=== PATIENT | female | born 1950 | race Caucasian/White ===

== ENCOUNTER → 2016-08-22 | Outpatient (CLI) | payer MEDICARE ==
--- NOTE | 2016-08-23 11:10 | MM ---
Reason for exam: screening (asymptomatic). Last mammogram was performed 1 year and 3 months ago. History: Family history of breast cancer in mother. Physical Findings: A clinical breast exam by your physician is recommended on an annual basis and results should be correlated with mammographic findings. MG 3D Screening Mammo W/Cad Bilateral CC and MLO view(s) were taken. Prior study comparison: May 19, 2015, mammogram, performed at [facility]. The breast tissue is heterogeneously dense. This may lower the sensitivity of mammography. Finding: There are typically benign round calcifications in the right breast. There is no discrete abnormality. ASSESSMENT: Benign, BI-RAD 2 RECOMMENDATION: Routine screening mammogram of both breasts in 1 year.
== END | disposition home or self-care (01) ==
LOC: RADMAMWWP 10:39
PROVIDERS: ATTEND Family Medicine
DX: Z12.31 Encounter for screening mammogram for malignant neoplasm of breast (principal)
CPT/HCPCS: 77063; G0202

== ENCOUNTER 2017-07-02 10:08 | Emergency (ER) | payer MEDICARE ==
--- NOTE | 2017-07-02 11:26 | ED ---
General Adult HPI - General Chief complaint: Fall Stated complaint: Fall, head injury Time Seen by Provider: 07/02/17 10:40 Source: patient, RN notes reviewed Mode of arrival: wheelchair Limitations: no limitations - History of Present Illness Initial comments: This is a 67-year-old female who presents emergency department after she has fallen on some slippery garage floor according to her and her she landed directly on her back and hitting her head at the same time. Patient states she saw stars but did not pass out. Patient states she does have a headache in the right side of her head. Patient states her as a lump in the occipital region of her brain. Patient states that she felt tingling throughout her whole body right after it happened but that has since gone away. Patient denies any neck pain patient denies any back pain patient has noted that she does have a bruise on her elbow but it does not hurt she has full range of motion. Patient denies chest pain abdominal pain. Patient denies any hip pain or lower extremity pain. Patient denies any visual disturbance. Patient states after she landed she felt as though she had some muffling of her hearing. 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 - Related Data Home Medications Medication Instructions Recorded Confirmed Aspirin 81 mg PO DAILY 05/06/14 07/02/17 Biotin 5 mg PO DAILY 07/02/17 07/02/17 Garlic 1 tab PO DAILY 07/02/17 07/02/17 Hydroxychloroquine Sulfate 200 mg PO BID 07/02/17 07/02/17 [Plaquenil] Levothyroxine Sodium [Synthroid] 50 mcg PO DAILY 07/02/17 07/02/17 Allergies Allergy/AdvReac Type Severity Reaction Status Date / Time VITAMIN IN TABLET FORM AdvReac Unknown Uncoded 07/02/17 11:16 Review of Systems ROS Statement: Those systems with pertinent positive or pertinent negative responses have been documented in the HPI. ROS Other: All systems not noted in ROS Statement are negative. Past Medical History Past Medical History: Hyperlipidemia, Rheumatoid Arthritis (RA), Thyroid Disorder Additional Past Medical History / Comment(s): HX OF POLYPS. Right eye anyersum, hypothyroidism History of Any Multi-Drug Resistant Organisms: None Reported Past Surgical History: Hysterectomy Past Anesthesia/Blood Transfusion Reactions: No Reported Reaction Past Psychological History: No Psychological Hx Reported Smoking Status: Never smoker Past Alcohol Use History: Rare Past Drug Use History: None Reported General Exam - General Exam Comments Initial Comments: GENERAL: Patient is well-developed and well-nourished. Patient is nontoxic and well- hydrated and is in mild distress. ENT: Neck is soft and supple. No significant lymphadenopathy is noted. Oropharynx is clear. Moist mucous membranes. She has full range of motion without any pain. However on palpation patient does have some spinous process tenderness at about C6. Patient has some palpable tenderness on the occipital region of her scalp EYES: The sclera were anicteric and conjunctiva were pink and moist. Extraocular movements were intact and pupils were equal round and reactive to light. Eyelids were unremarkable. PULMONARY: Unlabored respirations. Good breath sounds bilaterally. No audible rales rhonchi or wheezing was noted. CARDIOVASCULAR: There is a regular rate and rhythm without any murmurs gallops or rubs. ABDOMEN: Soft and nontender with normal bowel sounds. No palpable organomegaly was noted. There is no palpable pulsatile mass. SKIN: Skin is clear with no lesions or rashes and otherwise unremarkable. NEUROLOGIC: Patient is alert and oriented x3. Cranial nerves II through XII are grossly intact. Motor and sensory are also intact. Normal speech, volume and content. Symmetrical smile. MUSCULOSKELETAL: Normal extremities with adequate strength and full range of motion. Right elbow has a contusion on the posterior aspect of the elbow elbow has full range of motion however. LYMPHATICS: No significant lymphadenopathy is noted PSYCHIATRIC: Normal psychiatric evaluation. Limitations: no limitations Course Vital Signs 07/02/17 10:42 Temperature 97.4 F L Pulse Rate 71 Respiratory 18 Rate Blood Pressure 129/68 O2 Sat by Pulse 96 Oximetry Medical Decision Making - Medical Decision Making Patient's CT of the head and C-spine show no acute abnormality. Patient did not want any pain medicines while in the emergency department. Disposition Clinical Impression: Fall, Head injury Instructions: Head Injury (ED) Additional Instructions: Patient should return to the emergency department there is increased headache, neurologic deficit, vomiting or any new symptoms. Referrals: Shaan Jack DO [Primary Care Provider] - 1-2 days Time of Disposition: 12:45
--- NOTE | 2017-07-02 12:14 | CT ---
EXAMINATION TYPE: CT brain cameron shah DATE OF EXAM: 07/02/2017 COMPARISON: NONE HISTORY: Patient fell today with blow to back of head. Patient complains of neck pain, headache, and dizziness. CT DLP: 1490 mGycm. Automated Exposure Control for Dose Reduction was Utilized. TECHNIQUE: CT scan of the head and cervical spine are performed without contrast. FINDINGS: There is no acute intracranial hemorrhage, mass effect, or midline shift identified. The ventricles and sulci are symmetrically prominent compatible with age-related volume loss The globes are intact and the visualized sinuses are clear. The known 2 mm area prominence extending from the ca vernous segment of the right internal carotid artery is better seen on the prior MR angiogram head da norma 03/24/2015. There is slight asymmetric prominence of the right internal carotid artery comparison to the left. Cervical spine is visualized in its entirety from C1 through upper thoracic levels and demonstrates s atisfactory alignment without evidence of acute fracture or dislocation. Prevertebral soft tissue ap pears within normal limits. The C1-C2 articulation is unremarkable. Sclerotic focus is seen within the left facet of C2, possible bone island measuring 5 mm. No other sclerotic foci are seen. Mild to moderate multilevel degenerative changes are noted of the cervical spine resulting in moderate neural foraminal narrowing bilaterally at C4-C5, severe on the right at C5-C6, and mild at C6-C7 bilaterall y. Small posterior disc osteophyte complexes at C4-C5 and C5-C6 creates mild spinal canal stenosis. T here is a reversal usual cervical lordosis from C2 through C7. Lung apices demonstrate pleural parenc hymal scarring. IMPRESSION: 1. There is no acute fracture or dislocation evident in the cervical spine. 2. No acute intracranial hemorrhage, mass effect, or midline shift is seen. 3. Mild to moderate multilevel degenerative changes of the thoracic spine with reversal usual cervica l lordosis from C2 through C7, multilevel neural foraminal stenosis as described above, and mild spin al canal stenosis at C4-5 and C5-6. 4. Nonspecific sclerotic focus of the left facet of C2 measuring 5 mm, possibly bone island. 5. Age-related cerebral volume loss. 6. Slight asymmetry in the right internal carotid artery as compared to the left with the 2 mm aneury sm better visualized on the MR of 2014. Follow-up with MR for stability could be performed. No curren t evidence of rupture with intracranial hemorrhage.
[2017-07-02 12:55] VITALS: BP 125/62; PULSE 78; RESP 16; TEMP 97.8
== END 2017-07-02 12:50 | disposition home or self-care (01) ==
LOC: EC 10:08
DX: S09.90XA Unspecified injury of head, initial encounter (principal); E03.9 Hypothyroidism, unspecified; Z79.82 Long term (current) use of aspirin; Z79.899 Other long term (current) drug therapy; Z88.8 Allergy status to other drugs, medicaments and biological substances; W01.198A Fall on same level from slipping, tripping and stumbling with subsequent striking against other object, initial encounter; Y92.008 Other place in unspecified non-institutional (private) residence as the place of occurrence of the external cause
CPT/HCPCS: 70450; 72125; 99283

== ENCOUNTER → 2017-08-23 | Outpatient (CLI) | payer MEDICARE ==
--- NOTE | 2017-08-25 08:20 | MM ---
Reason for exam: screening (asymptomatic). Last mammogram was performed 1 year ago. History: Patient is postmenopausal. Family history of breast cancer in mother. Physical Findings: A clinical breast exam by your physician is recommended on an annual basis and results should be correlated with mammographic findings. MG 3D Screening Mammo W/Cad Bilateral CC and MLO view(s) were taken. Prior study comparison: August 22, 2016, bilateral MG 3d screening mammo w/cad. May 19, 2015, mammogram, performed at [facility]. The breast tissue is extremely dense which could obscure a lesion on mammography. No suspicious abnormality. ASSESSMENT: Negative, BI-RAD 1 RECOMMENDATION: Routine screening mammogram of both breasts in 1 year.
== END | disposition home or self-care (01) ==
LOC: RADMAMWWP 09:54
PROVIDERS: ATTEND Family Medicine
DX: Z12.31 Encounter for screening mammogram for malignant neoplasm of breast (principal)
CPT/HCPCS: 77063; 77067

== ENCOUNTER → 2017-11-22 | Outpatient (CLI) | payer MEDICARE | END | disposition home or self-care (01) | LOC: LABWHC1 15:22 | PROVIDERS: ATTEND Otolaryngology | DX: M48.02 Spinal stenosis, cervical region (principal); M50.221 Other cervical disc displacement at C4-C5 level; M19.90 Unspecified osteoarthritis, unspecified site | CPT/HCPCS: 36415; 82565 ==

== ENCOUNTER → 2017-11-23 | Outpatient (CLI) | payer MEDICARE ==
--- NOTE | 2017-11-23 17:20 | MR ---
EXAMINATION TYPE: MR cervical spine wo/w con DATE OF EXAM: 11/23/2017 COMPARISON: None HISTORY: Degenerative osteoarthritis TECHNIQUE: Multiplanar, multisequence images of the cervical spine were acquired utilizing 6 mL intravenous Gada vist gadolinium contrast. Diffusion weighted imaging was performed. C2-C3: No evidence for degenerative disc disease. No disc bulge/herniation or protrusion. No Canal stenosis. Foramina are patent bilaterally. C3-C4: No evidence for degenerative disc disease. No disc bulge/herniation or protrusion. No Canal stenosis. Foramina are patent bilaterally. C4-C5: Broad-based disc bulge has mild anterior thecal sac impression. No AP spinal canal stenosis is evident. No cord contact is evident. Uncovertebral joint atrophy is mild foraminal narrowing. C5-C6: There is loss of disc height to this level. Mild disc bulge has anterior thecal sac flattening . No AP spinal canal stenosis present. Uncovertebral joint hypertrophy is mild foraminal narrowing. C6-C7: Minimal disc bulging is anterior thecal sac contact. No AP spinal canal stenosis present. Unco vertebral joint hypertrophy is mild foraminal narrowing. C7-T1: No evidence for degenerative disc disease. No disc bulge/herniation or protrusion. No Canal stenosis. Foramina are patent bilaterally. Cervical segments are intact. There is normal alignment. Cervical spinal cord is of normal signal. Craniovertebral junction relationships are within normal limits. No abnormal enhancement is evident . IMPRESSION: 1. Mild disc bulging C4-5, C5-6, C6-7. Mild disc narrowing is present C5-6. 2. Uncovertebral joint hypertrophy contributing to foraminal narrowing mid cervical spine discussed a silvio
== END | disposition home or self-care (01) ==
LOC: RADMRIMAIN 11:50
PROVIDERS: ATTEND Otolaryngology
DX: M48.02 Spinal stenosis, cervical region (principal); M99.71 Connective tissue and disc stenosis of intervertebral foramina of cervical region; M50.221 Other cervical disc displacement at C4-C5 level; M46.92 Unspecified inflammatory spondylopathy, cervical region; M19.90 Unspecified osteoarthritis, unspecified site
CPT/HCPCS: 72156; A9581

== ENCOUNTER 2017-11-24 18:17 | Emergency (ER) | payer MEDICARE ==
[2017-11-24 19:17] VITALS: TEMP 98.3
[2017-11-24] MEDS ORDERED: MECLIZINE 12.5 MG TAB PO STA (21:12)
--- NOTE | 2017-11-24 21:19 | ED ---
General Adult HPI - General Chief complaint: Dizziness Stated complaint: Dizziness Time Seen by Provider: 11/24/17 19:28 Source: patient, family, RN notes reviewed, old records reviewed Mode of arrival: wheelchair Limitations: no limitations - History of Present Illness Initial comments: Chief complaint and history of present illness; this is a 67-year-old female here with her daughter and . The patient reports she was driving with her has a passenger in she complained him that she felt very dizzy. 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 She denies difficulty causes dizziness walking into her home after he drove her home. When she went to sit down on the chair in the kitchen she almost fell off the chair. These 2 episodes lasted 2 or 3 minutes each. Since then it has subsided. No significant history of any head injuries lately but she did in mid -June fall and hit her head CAT scan at that time was negative. Recently the patient was treated with a steroid because of fluid behind both ears by her ENT specialist. Recently i.e. yesterday she had an MRI of her cervical spine because of cervical discomfort. That was reviewed and no significant pathology appreciated other than mild disc bulging at C4-C5 and C5-C6 C6-C7 and disc narrowing at C5-C6. At this time the patient is not dizzy with rapid head movement. - Related Data Home Medications Medication Instructions Recorded Confirmed Aspirin 81 mg PO DAILY 05/06/14 11/24/17 Biotin 5 mg PO DAILY 07/02/17 11/24/17 Garlic 1 tab PO DAILY 07/02/17 11/24/17 Hydroxychloroquine Sulfate 200 mg PO DAILY 07/02/17 11/24/17 [Plaquenil] Levothyroxine Sodium [Synthroid] 50 mcg PO DAILY 07/02/17 11/24/17 Calcium Carbonate [Calcium] 600 mg PO DAILY 11/24/17 11/24/17 Cholecalciferol [Vitamin D3] 1,000 unit PO DAILY 11/24/17 11/24/17 Cyanocobalamin [Vitamin B-12 1,000 mcg SQ Q56D 11/24/17 11/24/17 Injection] Liothyronine Sodium [Cytomel] 5 mcg PO DAILY 11/24/17 11/24/17 Valerian Root 100 mg PO DAILY 11/24/17 11/24/17 traZODone HCL 50 mg PO HS 11/24/17 11/24/17 Previous Rx's Medication Instructions Recorded Meclizine [Antivert] 25 mg PO TID #30 tab 11/24/17 Allergies Allergy/AdvReac Type Severity Reaction Status Date / Time VITAMIN IN TABLET FORM Allergy Unknown Rash/Hives Uncoded 11/24/17 19:33 Review of Systems ROS Statement: Those systems with pertinent positive or pertinent negative responses have been documented in the HPI. Review of systems currently no headache or visual acuity changes no dizziness with head movement is chronically mild neck discomfort. No chest pain palpitations shortness of breath GI/ problems no neuro deficits complained of at this time. All systems were reviewed. Past medical processing significant for hyperlipidemia, rheumatoid arthritis for which she takes Plaquenil. She has hypothyroidism, history of polyps. 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 No complaint of headache or visual acuity changes. The patient's family history significant for breast bone and testicular cancer. The patient' s ALLERGIES at a vitamin content nonsmoker nondrinker. ROS Other: All systems not noted in ROS Statement are negative. Past Medical History Past Medical History: Hyperlipidemia, Rheumatoid Arthritis (RA), Thyroid Disorder Additional Past Medical History / Comment(s): HX OF POLYPS. Right eye anyersum, hypothyroidism History of Any Multi-Drug Resistant Organisms: None Reported Past Surgical History: Hysterectomy Past Anesthesia/Blood Transfusion Reactions: No Reported Reaction Past Psychological History: No Psychological Hx Reported Smoking Status: Never smoker Past Alcohol Use History: Rare Past Drug Use History: None Reported General Exam - General Exam Comments Initial Comments: General: The patient is awake and alert, in no distress, and does not appear acutely ill. Here because of dizziness and vertigo that lasted several minutes on several occasions earlier this afternoon. Current vital signs shows temperature 98.3 pulse 61 respiratory rate 18 pulse ox 90% room air blood pressure 131/77 Eye: Pupils are equal, round and reactive to light, extra-ocular movements are intact ; there is normal conjunctiva bilaterally. No signs of icterus. Ears, nose, mouth and throat: There are moist mucous membranes and no oral lesions. Neck: The neck is supple, there is no tenderness, no carotid bruit. Cardiovascular: There is a regular rate and rhythm. No murmur, rub or gallop is appreciated. Respiratory: Lungs are clear to auscultation, respirations are non-labored, breath sounds are equal. No wheezes, stridor, rales, or rhonchi. Gastrointestinal: Soft, non-distended, non-tender abdomen without masses or organomegaly noted. There is no rebound or guarding present. No CVA tenderness. Bowel sounds are unremarkable. Back: No back pain Musculoskeletal: Normal ROM, no tenderness, There is no pedal edema. There is no calf tenderness or swelling. Sensation intact. Pulses equal bilaterally 2+. Neurological: CN II-XII intact, There are no obvious motor or sensory deficits. Coordination appears grossly intact. Speech is normal. No focal or lateralizing findings Skin: Skin is warm and dry and no rashes or lesions are noted. Psychiatric: Cooperative, appropriate mood & affect, normal judgment. Limitations: no limitations Course Vital Signs 11/24/17 11/24/17 11/24/17 19:14 19:51 21:37 Temperature 98.3 F Pulse Rate 61 55 L 61 Respiratory 18 17 18 Rate Blood Pressure 131/77 154/72 129/71 O2 Sat by Pulse 98 98 99 Oximetry 11/24/17 22:36 Temperature Pulse Rate Respiratory 18 Rate Blood Pressure O2 Sat by Pulse Oximetry EKG Findings - EKG Comments: EKG Findings:: EKG was done and reviewed at 1949 showing sinus bradycardia with incomplete right bundle branch block no acute ST elevation no ectopy no ischemic changes. Rate 57 NM interval 144 QRS [address] QT [address] Callejas Medical Decision Making - Medical Decision Making Medical decision making; this is a 67-year-old female here with and daughter. The patient had several episodes lasting several minutes of vertigo. No nausea no vomiting. Labs show white count of 4.3 hemoglobin 12 hematocrit 38 with a potassium 3.8. BUN 12 creatinine 0.7 GFR greater than 90. Glucose 90. Patient did have CAT scan of the brain because she had a significant fall 5 months ago. Yesterday she had an MRI of her cervical spine. Because of chronic pain. A CT of the brain was done and reviewed by radiologist his findings are there is mild cerebral cortical atrophy. There is no mass effect or midline shift. There is no sign of intracranial hemorrhage. The calvarium is intact. Impression mild atrophy. No acute intracranial abnormality. No change. As read by Dr. Mariee Patient's feeling better. He has not had any symptoms while in emergency room. We did discuss middle ear and in her ear pressures. She he has been fluid but no evidence of infection. CAT scan was normal labs normal. Neurologically intact. She was given meclizine while in emergency room. Advised to continue with meclizine 25 mg 3 times a day for the next 7-10 days as needed change positions slowly. Not to drive until she feels as all symptoms have subsided. Follow-up with your ENT as well as her family doctor. Return emergency room as needed. - Lab Data Result diagrams: 11/24/17 21:23 11/24/17 21:23 Lab Results 11/24/17 11/24/17 Range/Units 21:23 21:23 WBC 4.3 (3.8-10.6) k/uL RBC 4.16 (3.80-5.40) m/uL Hgb 12.1 (11.4-16.0) gm/dL Hct 38.1 (34.0-46.0) % MCV 91.5 (80.0-100.0) fL MCH 29.0 (25.0-35.0) pg MCHC 31.7 (31.0-37.0) g/dL RDW 13.0 (11.5-15.5) % Plt Count 224 (150-450) k/uL Neutrophils % 50 % Lymphocytes % 37 % Monocytes % 7 % Eosinophils % 3 % Basophils % 0 % Neutrophils # 2.1 (1.3-7.7) k/uL Lymphocytes # 1.6 (1.0-4.8) k/uL Monocytes # 0.3 (0-1.0) k/uL Eosinophils # 0.1 (0-0.7) k/uL Basophils # 0.0 (0-0.2) k/uL Sodium 142 (137-145) mmol/L Potassium 3.8 (3.5-5.1) mmol/L Chloride 108 H (98-107) mmol/L Carbon Dioxide 28 (22-30) mmol/L Anion Gap 6 mmol/L BUN 12 (7-17) mg/dL Creatinine 0.70 (0.52-1.04) mg/dL Est GFR (CKD-EPI)AfAm >90 (>60 ml/min/1.73 sqM) Est GFR (CKD-EPI)NonAf >90 (>60 ml/min/1.73 sqM) Glucose 90 (74-99) mg/dL Calcium 9.2 (8.4-10.2) mg/dL Total Bilirubin 0.3 (0.2-1.3) mg/dL AST 25 (14-36) U/L ALT 36 (9-52) U/L Alkaline Phosphatase 66 (38-126) U/L Total Protein 6.3 (6.3-8.2) g/dL Albumin 4.0 (3.5-5.0) g/dL Disposition Clinical Impression: Labyrinthitis of right ear Disposition: HOME SELF-CARE Condition: Fair Instructions: Dizziness (ED), Labyrinthitis (ED) Additional Instructions: Change positions slowly. Take meclizine 25 mg 3 times daily. Use nasal spray on the right side especially in order to help the middle ear drained. Follow- up with your family physician and her ENT. Return emergency room as needed. Prescriptions: Meclizine [Antivert] 25 mg PO TID #30 tab Is patient prescribed a controlled substance at d/c from ED?: No Referrals: Shaan Jack DO [Primary Care Provider] - 1-2 days Time of Disposition: 23:23
[2017-11-24 21:32] LABS: Basophils % (A) 0 %; Eosinophils # (A) 0.1 k/uL (0-0.7); Eosinophils % (A) 3 %; HCT 38.1 % (34.0-46.0); HGB 12.1 gm/dL (11.4-16.0); Lymphocytes # (A) 1.6 k/uL (1.0-4.8); Lymphocytes % (A) 37 %; MCHC 31.7 g/dL (31.0-37.0); MCV 91.5 fL (80.0-100.0); Mean Platelet Volume 6.3; Monocytes # (A) 0.3 k/uL (0-1.0); Monocytes % (A) 7 %; Neutrophils # (A) 2.1 k/uL (1.3-7.7); Neutrophils % (A) 50 %; Platelet Count 224 k/uL (150-450); RBC 4.16 m/uL (3.80-5.40); WBC 4.3 k/uL (3.8-10.6)
[2017-11-24 21:46] LABS: ALT 36 U/L (9-52); AST 25 U/L (14-36); Alkaline Phosphatase 66 U/L (38-126); Anion Gap 6 mmol/L; Blood Urea Nitrogen 12 mg/dL (7-17); Calcium 9.2 mg/dL (8.4-10.2); Carbon Dioxide 28 mmol/L (22-30); Chloride 108 mmol/L (98-107); Glucose 90 mg/dL (74-99); Potassium 3.8 mmol/L (3.5-5.1); Sodium 142 mmol/L (137-145); Total Bilirubin 0.3 mg/dL (0.2-1.3); Total Protein 6.3 g/dL (6.3-8.2)
--- NOTE | 2017-11-24 23:03 | CT ---
EXAMINATION TYPE: CT brain wo con DATE OF EXAM: 11/24/2017 COMPARISON: 07/02/2017 HISTORY: c/o dizziness CT DLP: 1036.0 mGycm Automated exposure control for dose reduction was used. FINDINGS: There is mild cerebral cortical atrophy. There is no mass effect nor midline shift. There is no sign of intracranial hemorrhage. The calvarium is intact. IMPRESSION: MILD ATROPHY. NO ACUTE INTRACRANIAL ABNORMALITY. NO CHANGE.
[2017-11-24 23:33] VITALS: BP 116/57; PULSE 78; RESP 17
== END 2017-11-24 23:40 | disposition home or self-care (01) ==
LOC: EC 18:17
DX: H83.01 Labyrinthitis, right ear (principal); G31.9 Degenerative disease of nervous system, unspecified; M48.02 Spinal stenosis, cervical region; M50.221 Other cervical disc displacement at C4-C5 level; M06.9 Rheumatoid arthritis, unspecified; E03.9 Hypothyroidism, unspecified; Z79.82 Long term (current) use of aspirin; Z79.899 Other long term (current) drug therapy; Z88.8 Allergy status to other drugs, medicaments and biological substances
CPT/HCPCS: 36415; 70450; 80053; 85025; 93005; 99284

== ENCOUNTER 2017-12-22 14:04 | Emergency (ER) | payer OTHER, MEDICARE ==
[2017-12-22 14:11] VITALS: TEMP 99
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
[2017-12-22] MEDS ORDERED: ONDANSETRON 4 MG/2 ML VIAL IVP STA ×2 (14:39→15:47)
[2017-12-22 15:13] LABS: Basophils % (A) 0 %; Eosinophils # (A) 0.1 k/uL (0-0.7); Eosinophils % (A) 2 %; HCT 36.4 % (34.0-46.0); HGB 11.7 gm/dL (11.4-16.0); Lymphocytes % (A) 24 %; MCH 29.4 pg (25.0-35.0); MCHC 32.1 g/dL (31.0-37.0); MCV 91.6 fL (80.0-100.0); Mean Platelet Volume 6.6; Monocytes # (A) 0.3 k/uL (0-1.0); Monocytes % (A) 7 %; Neutrophils # (A) 2.7 k/uL (1.3-7.7); Neutrophils % (A) 65 %; Platelet Count 236 k/uL (150-450); RBC 3.97 m/uL (3.80-5.40); RDW 12.8 % (11.5-15.5); WBC 4.2 k/uL (3.8-10.6)
[2017-12-22 15:21] LABS: INR 1.1 (<1.2); Partial Thromboplastin Time 23.5 sec (22.0-30.0); Prothrombin Time 10.7 sec (9.0-12.0)
[2017-12-22 15:25] LABS: ALT 31 U/L (9-52); AST 24 U/L (14-36); Albumin 3.7 g/dL (3.5-5.0); Alkaline Phosphatase 72 U/L (38-126); Anion Gap 8 mmol/L; Blood Urea Nitrogen 18 mg/dL (7-17); Calcium 8.9 mg/dL (8.4-10.2); Carbon Dioxide 24 mmol/L (22-30); Chloride 109 mmol/L (98-107); Glucose 92 mg/dL (74-99); Potassium 3.5 mmol/L (3.5-5.1); Sodium 141 mmol/L (137-145); Total Bilirubin 0.4 mg/dL (0.2-1.3); Total Protein 6.1 g/dL (6.3-8.2)
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
[2017-12-22] MEDS ORDERED: ACETAMINOPHEN TAB 500 MG TAB PO STA (16:08)
[2017-12-22] MEDS ORDERED: KETOROLAC 30 MG/ML 1 ML VIAL IVP STA (16:08)
[2017-12-22 17:23] VITALS: BP 120/67; PULSE 69; RESP 17
[2017-12-22] MEDS ORDERED: ORPHENADRINE 30 MG/ML 2 ML VIAL IVP STA (17:52)
--- NOTE | 2017-12-22 17:54 | XR ---
EXAMINATION TYPE: XR chest 2V DATE OF EXAM: 12/22/2017 COMPARISON: NONE HISTORY: Chest pain TECHNIQUE: Frontal and lateral views of the chest are obtained. FINDINGS: Heart and mediastinum are normal. Lungs are clear. Diaphragm is normal. Bony thorax appear s intact. IMPRESSION: Normal chest
--- NOTE | 2017-12-22 17:55 | XR ---
EXAMINATION TYPE: XR lumbar spine 2 or 3V DATE OF EXAM: 12/22/2017 COMPARISON: NONE HISTORY: Back pain TECHNIQUE: 3 views FINDINGS: Lumbar vertebra have normal alignment. There is moderate narrowing of L4-5 disc space. The other disc spaces appear normal. Posterior elements are intact. Sacroiliac joints appear normal. IMPRESSION: Spondylosis at L4-5. No fracture seen.
== END 2017-12-22 18:29 | disposition home or self-care (01) ==
LOC: EC 14:04
DX: S06.0X0A Concussion without loss of consciousness, initial encounter (principal); S00.83XA Contusion of other part of head, initial encounter; M62.830 Muscle spasm of back; M54.2 Cervicalgia; E03.9 Hypothyroidism, unspecified; Z79.82 Long term (current) use of aspirin; Z79.899 Other long term (current) drug therapy; Z88.8 Allergy status to other drugs, medicaments and biological substances; V59.40XA Driver of pick-up truck or van injured in collision with unspecified motor vehicles in traffic accident, initial encounter; Y92.410 Unspecified street and highway as the place of occurrence of the external cause
CPT/HCPCS: 99284; 96374; 96375 ×2; 96376; 36415; 80053; 85025; 85610; 85730; 72100; 71046; 72125; 70450; J2360; J2405; J1885

== ENCOUNTER 2017-12-25 09:58 | Emergency (ER) | payer OTHER, MEDICARE ==
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
[2017-12-25 11:55] VITALS: BP 114/57; PULSE 65; RESP 16; TEMP 98.3
== END 2017-12-25 12:11 | disposition home or self-care (01) ==
LOC: EC 09:58
DX: F07.81 Postconcussional syndrome (principal); E03.9 Hypothyroidism, unspecified; Z88.8 Allergy status to other drugs, medicaments and biological substances; Z79.82 Long term (current) use of aspirin; Z79.899 Other long term (current) drug therapy
CPT/HCPCS: 70450; 70486; 99284

== ENCOUNTER → 2018-01-17 | Outpatient (CLI) | payer OTHER ==
[2018-01-17 08:43] LABS: Blood Urea Nitrogen 12 mg/dL (7-17)
== END | disposition home or self-care (01) ==
LOC: LABWHC1 07:26
PROVIDERS: ATTEND Psychiatry & Neurology Neurology
DX: G44.321 Chronic post-traumatic headache, intractable (principal); S09.90XA Unspecified injury of head, initial encounter
CPT/HCPCS: 36415; 82565; 84520

== ENCOUNTER → 2018-08-24 | Outpatient (CLI) | payer MEDICARE ==
--- NOTE | 2018-08-24 14:49 | MM ---
Reason for exam: screening (asymptomatic). Last mammogram was performed 1 year ago. History: Patient is postmenopausal. Family history of breast cancer in mother. Physical Findings: A clinical breast exam by your physician is recommended on an annual basis and results should be correlated with mammographic findings. MG 3D Screening Mammo W/Cad Bilateral CC and MLO view(s) were taken. XCCL view(s) were taken of the right breast. Prior study comparison: August 23, 2017, bilateral MG 3d screening mammo w/cad. August 22, 2016, bilateral MG 3d screening mammo w/cad. The breast tissue is heterogeneously dense. This may lower the sensitivity of mammography. There are benign appearing round calcifications in the right breast. There is no discrete abnormality. ASSESSMENT: Benign, BI-RAD 2 RECOMMENDATION: Routine screening mammogram of both breasts in 1 year.
== END | disposition home or self-care (01) ==
LOC: RADMAMWWP 08:50
PROVIDERS: ATTEND Family Medicine
DX: Z12.31 Encounter for screening mammogram for malignant neoplasm of breast (principal); Z80.3 Family history of malignant neoplasm of breast
CPT/HCPCS: 77063; 77067

== ENCOUNTER → 2018-09-24 | Outpatient (CLI) | payer MEDICARE | END | disposition home or self-care (01) | LOC: LABWHC1 09:17 | PROVIDERS: ATTEND Psychiatry & Neurology Neurology | DX: S09.90XA Unspecified injury of head, initial encounter (principal) | CPT/HCPCS: 36415; 82565; 84520 ==

== ENCOUNTER → 2018-09-27 | Outpatient (CLI) | payer OTHER, MEDICARE ==
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
== END | disposition home or self-care (01) ==
LOC: RADMRIMAIN 07:38
PROVIDERS: ATTEND Psychiatry & Neurology Neurology
DX: G31.9 Degenerative disease of nervous system, unspecified (principal)
CPT/HCPCS: 70553; A9585

== ENCOUNTER → 2019-05-30 | Day surgery (SDC) | payer MEDICARE ==
[2019-05-29 08:52] VITALS: BMI 22.1
[~2019-05-30] MED LIST: LACTATED RINGERS 1,000 ML IV SCH; LIDOCAINE 1% 20 ML VIAL (10MG/ML) FOR IV START INTRADERMA PRN; LIDOCAINE 1% INJ 10MG/ML (20 ML MDV) ONE; PROPOFOL 10 MG/ML 20 ML VIAL IV ONE
[2019-05-30 10:59] VITALS: RESP 16; TEMP 97.9
--- NOTE | 2019-05-30 12:15 | P.PCN ---
Date of Procedure: 05/30/19 Procedure(s) Performed: BRIEF HISTORY: Patient is a 69-year-old pleasant white female scheduled for an elective colonoscopy as a part of evaluation of chronic diarrhea for the last several months duration. He also has prior history of colon polyps. PROCEDURE PERFORMED: Colonoscopy with biopsy. PREOPERATIVE DIAGNOSIS: Chronic diarrhea/history of colon polyps. IV sedation per Anesthesia. PROCEDURE: After informed consent was obtained, the patient, was brought into the endoscopy unit. IV sedation was administered by Anesthesia under continuous monitoring. Digital rectal examination was normal. Initially the Olympus CF-160 flexible video colonoscope was then inserted in the rectum, gradually advanced into the cecum without any difficulty. Careful examination was performed as the scope was gradually being withdrawn. Ileocecal valve and the appendiceal orifice were visualized and appeared normal. Prep was excellent. Mucosa of the cecum, ascending colon, transverse colon, descending colon appeared normal. In the descending colon there was a 3-4 mm sessile polyp that was removed by cold b iopsy. Rest of the, sigmoid colon, and rectum appeared normal. Scattered sigmoid diverticulosis seen. Random biopsies were done from ascending and descending colon to rule out microscopic/collagenous colitis. Retroflexion was performed in the rectum and no lesions were seen. The patient tolerated the procedure well. IMPRESSION: 3-4 mm descending colon polyp status post removal by cold biopsy Scattered sigmoid diverticulosis RECOMMENDATIONS: Findings of this examination were discussed with the patient as well as a family. She was advised to follow with the biopsy results and she'll be seen in office in 2 weeks.
[2019-05-30 12:33] VITALS: BP 118/79; PULSE 56
== END ==
LOC: ORWHC2ENDO 10:40
PROVIDERS: ATTEND Internal Medicine Gastroenterology
DX: K63.5 Polyp of colon (principal); K52.9 Noninfective gastroenteritis and colitis, unspecified; K57.30 Diverticulosis of large intestine without perforation or abscess without bleeding; Z86.010 Personal history of colon polyps; Z90.710 Acquired absence of both cervix and uterus; Z79.1 Long term (current) use of non-steroidal anti-inflammatories (NSAID); Z79.890 Hormone replacement therapy; Z79.899 Other long term (current) drug therapy
CPT/HCPCS: 88305; 45380; J2001; J2704

== ENCOUNTER → 2019-09-25 | Outpatient (CLI) | payer MEDICARE ==
--- NOTE | 2019-09-25 12:00 | ECHOF ---
Referral Reason:R41.3 Other amnesia, I67.1 Cerebral aneurysm MEASUREMENTS -------- HEIGHT: 167.6 cm WEIGHT: 59.0 kg BP: 120/94 RVIDd: 3.1 cm (< 3.3) IVSd: 1.0 cm (0.6 - 1.1) LVIDd: 4.0 cm (3.9 - 5.3) LVPWd: 1.0 cm (0.6 - 1.1) IVSs: 1.6 cm LVIDs: 2.9 cm LVPWs: 1.3 cm LA Diam: 2.9 cm (2.7 - 3.8) LAESV Index (A-L): 23.37 ml/m Ao Diam: 3.2 cm (2.0 - 3.7) AV Cusp: 2.0 cm (1.5 - 2.6) MV EXCURSION: 17.802 mm (> 18.000) MV EF SLOPE: 172 mm/s (70 - 150) EPSS: 0.3 cm MV E Anuj: 0.75 m/s MV DecT: 185 ms MV A Anuj: 0.60 m/s MV E/A Ratio: 1.25 RAP: 5.00 mmHg RVSP: 27.82 mmHg FINDINGS -------- Sinus rhythm. This was a technically good study. The left ventricular size is normal. Left ventricular wall thickness is normal. Overall left vent ricular systolic function is normal with, an EF between 55 - 60 %. The right ventricle is normal in size. Normal LA size by volume 22+/-6 ml/m2. The right atrium is normal in size. Interatrial and interventricular septum intact. The aortic valve is trileaflet and appears structurally normal. There is trace to mild mitral regurgitation. Mild tricuspid regurgitation present. Right ventricular systolic pressure is normal at < 35 mmHg. Trace/mild (physiologic) pulmonic regurgitation. The aortic root size is normal. Normal inferior vena cava with normal inspiratory collapse consistent with estimated right atrial pre ssure of 5 mmHg. There is no pericardial effusion. CONCLUSIONS -------- 1. Sinus rhythm. 2. This was a technically good study. 3. The left ventricular size is normal. 4. Left ventricular wall thickness is normal. 5. Overall left ventricular systolic function is normal with, an EF between 55 - 60 %. 6. The right ventricle is normal in size. 7. Normal LA size by volume 22+/-6 ml/m2. 8. The right atrium is normal in size. 9. Interatrial and interventricular septum intact. 10. The aortic valve is trileaflet and appears structurally normal. 11. There is trace to mild mitral regurgitation. 12. Mild tricuspid regurgitation present. 13. Right ventricular systolic pressure is normal at < 35 mmHg. 14. Trace/mild (physiologic) pulmonic regurgitation. 15. The aortic root size is normal. 16. Normal inferior vena cava with normal inspiratory collapse consistent with estimated right atrial pressure of 5 mmHg. 17. There is no pericardial effusion. CLIN ASST: Yvette Hand RDCS
== END | disposition home or self-care (01) ==
LOC: RADECHMAIN 11:00
PROVIDERS: ATTEND Family Medicine
DX: I08.1 Rheumatic disorders of both mitral and tricuspid valves (principal); I67.1 Cerebral aneurysm, nonruptured
CPT/HCPCS: 93306

== ENCOUNTER → 2019-09-26 | Outpatient (CLI) | payer MEDICARE ==
--- NOTE | 2019-09-26 09:56 | US ---
EXAMINATION TYPE: US carotid duplex BILAT DATE OF EXAM: 09/26/2019 COMPARISON: NONE CLINICAL HISTORY: I67.1 Cerebral aneurysm, nonruptured. Dizziness, no hx TIA EXAM MEASUREMENTS: RIGHT: Peak Systolic Velocity (PSV) cm/sec ----- Right CCA: 104 ----- Right ICA: 122 ----- Right ECA: 93.8 ICA/CCA ratio: 1.2 RIGHT: End Diastole cm/sec ----- Right CCA: 21.1 ----- Right ICA: 28.5 ----- Right ECA: 14.9 LEFT: Peak Systolic Velocity (PSV) cm/sec ----- Left CCA: 76.1 ----- Left ICA: 105 ----- Left ECA: 72.7 ICA/CCA ratio: 1.4 LEFT: End Diastole cm/sec ----- Left CCA: 19.0 ----- Left ICA: 38.1 ----- Left ECA: 7.5 VERTEBRALS (direction of flow): Right Vertebral: Antegrade Left Vertebral: Antegrade Rhythm: Normal No elevated velocities or significant stenosis. Plaque seen right bulb. No wall thickening IMPRESSION: Mild degree of grayscale atheromatous plaquing with no sonographically evident hemodynam ically significant stenosis within either visualized carotid arterial system. Criteria for Assigning % of Stenosis / Diameter reduction (Estimation based on the indirect measurements of the internal carotid artery velocities (ICA PSV). 1. Normal (no stenosis)=ICA PSV < 125 cm/s: ratio < 2.0: ICA EDV<40 cm/s. 2. Less than 50% stenosis=ICA PSV < 125 cm/s: ratio < 2.0: ICA EDV<40 cm/s. 3. 50 to 69% stenosis=ICA PSV of 125 to 230 cm/s: ration 2.0 ? 4.0: ICA EDV 40-100 cm/s. 4. Greater than 70% stenosis to near occlusion= ICA PSV > 230 cm/s: ratio > 4.0: ICA EDV > 100 cm/s. 5. Near occlusion= ICA PSV velocities may be low or undetectable: variable ratio and ICA EDV. 6. Total occlusion=unable to detect flow.
== END | disposition home or self-care (01) ==
LOC: RADUSWWP 09:12
PROVIDERS: ATTEND Family Medicine
DX: I67.2 Cerebral atherosclerosis (principal); I67.1 Cerebral aneurysm, nonruptured; R41.3 Other amnesia
CPT/HCPCS: 93880

== ENCOUNTER → 2019-10-08 | Outpatient (CLI) | payer MEDICARE ==
--- NOTE | 2019-10-08 11:40 | FL ---
EXAMINATION TYPE: FL barium swallow w video DATE OF EXAM: 10/08/2019 COMPARISON: NONE HISTORY: Hoarseness fullness on right TECHNIQUE: Fluoroscopy. FINDINGS: Fluoroscopic guidance was provided for the procedure performed in conjunction with the [facility] [place] pathology department. Please see complete report forthcoming from the Speech Pathology departmen t. Various consistencies from thin liquid to solids were administered. Fluoroscopy time 54 seconds. Number of images: 0. No aspiration or penetration was evident. No significant pooling was observed in the vallecula. There was normal propulsion of the bolus. IMPRESSION: 1. Normal modified barium swallow.
== END | disposition home or self-care (01) ==
LOC: RADFLMAIN 10:44
PROVIDERS: ATTEND Family Medicine
DX: R49.0 Dysphonia (principal)
CPT/HCPCS: 74230

== ENCOUNTER → 2019-10-14 | Outpatient (CLI) | payer MEDICARE ==
--- NOTE | 2019-10-14 11:50 | XR ---
EXAMINATION TYPE: XR chest 2V DATE OF EXAM: 10/14/2019 COMPARISON: 12/22/2017 INDICATION: Mitral valve leak, cough TECHNIQUE: Frontal and lateral views of the chest are obtained. FINDINGS: The heart size is normal. The pulmonary vasculature is normal. The lungs are clear. IMPRESSION: 1. No acute pulmonary process.
[2019-10-14 18:44] LABS: T4, Free (Free Thyroxine) 1.2 ng/dL (0.80-1.80)
== END | disposition home or self-care (01) ==
LOC: LABWHC1 10:55
PROVIDERS: ATTEND Otolaryngology
DX: R05 Cough (principal); R53.83 Other fatigue
CPT/HCPCS: 36415; 71046; 84439; 84443; 86376

== ENCOUNTER → 2019-11-05 | Outpatient (CLI) | payer MEDICARE ==
[2019-11-05 07:27] LABS: African American GFR (CKD) >90 (>60 ml/min/1.73 sqM); Blood Urea Nitrogen 16 mg/dL (7-17); Non-African American GFR(CKD) 90 (>60 ml/min/1.73 sqM)
--- NOTE | 2019-11-05 11:09 | CT ---
EXAMINATION TYPE: CT soft tissue neck w con DATE OF EXAM: 11/05/2019 7:53 AM COMPARISON: None. HISTORY: Feeling fullness of neck, right greater than left. CT DLP: 299.1 mGycm Automated exposure control for dose reduction was used. CONTRAST: CT scan of the neck is performed following with IV Contrast, patient injected with 100 mL of Isovue 3 00. Axial images are obtained, coronal and sagittal reformatted images are reviewed. BB markers were placed in patient's reported areas of concern. FINDINGS: Airway: No gross abnormality seen. Parotid/submandibular glands: No gross abnormality seen. Carotid/Vascular Structures: Patent and within normal limits for size. Osseous Structures: Degenerative changes of the cervical spine worst at C4-5 and C5-6. Other: Soft tissues in regions of bilateral BB markers demonstrate no focal fluid collection, asymmet ry, or mass. No lymphadenopathy. IMPRESSION: No focal abnormality of the neck, including no evidence of abscess or lymphadenopathy.
== END ==
LOC: RADCTMAIN 06:46
PROVIDERS: ATTEND Otolaryngology
DX: M54.2 Cervicalgia (principal); R13.10 Dysphagia, unspecified
CPT/HCPCS: 82565; 84520; 70491; 36415; Q9967

== ENCOUNTER → 2020-03-31 | Outpatient (CLI) | payer MEDICARE ==
--- NOTE | 2020-04-01 13:51 | MM ---
Reason for exam: screening (asymptomatic). Last mammogram was performed 1 year and 7 months ago. History: Patient is postmenopausal. Family history of breast cancer in mother. Physical Findings: A clinical breast exam by your physician is recommended on an annual basis and results should be correlated with mammographic findings. MG 3D Screening Mammo W/Cad Bilateral CC and MLO view(s) were taken. Prior study comparison: August 24, 2018, bilateral MG 3d screening mammo w/cad. August 23, 2017, bilateral MG 3d screening mammo w/cad. The breast tissue is extremely dense which could obscure a lesion on mammography. No significant changes when compared with prior studies. ASSESSMENT: Benign, BI-RAD 2 RECOMMENDATION: Routine screening mammogram of both breasts in 1 year.
== END | disposition home or self-care (01) ==
LOC: RADMAMWWP 13:48
PROVIDERS: ATTEND Family Medicine
DX: Z12.31 Encounter for screening mammogram for malignant neoplasm of breast (principal)
CPT/HCPCS: 77063; 77067

== ENCOUNTER 2021-02-24 15:52 | Observation (INO) | payer MEDICARE ==
[2021-02-24] MEDS ORDERED: ASPIRIN 81 MG PO STA (17:27)
--- NOTE | 2021-02-24 17:50 | ED ---
Chest Pain HPI - General Chief Complaint: Chest Pain Stated Complaint: Chest Pain Time Seen by Provider: 02/24/21 17:21 Source: patient, RN notes reviewed, old records reviewed Mode of arrival: wheelchair Limitations: no limitations - History of Present Illness Initial Comments: Patient is a 70-year-old female with history of thyroid disorder, hyperlipi demia, presenting to emergency Department with complaints of chest pain that happened earlier today. Patient states that approximately 2 PM, she was walking at the mall with her when she had a sudden chest pain in the center of the chest with radiation to the left arm, left hand numbness. She states it lasted for approximately 15-20 seconds then went away. She denies any shortness of breath, no palpitations with this event. She's never had anything like this before. She denies history of heart disease, she has not had a stress test in the past. 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 She denies any nausea or vomiting, no abdominal pain. She denies any chest pain at this time. She denies any recent fevers or chills, no cough or congestion. Patient denies any further complaints at this time. Her vitals are stable upon arrival. - Related Data Home Medications Medication Instructions Recorded Confirmed Garlic 500 mg PO DAILY 07/02/17 05/30/19 Levothyroxine Sodium [Synthroid] 50 mcg PO QAM 07/02/17 05/30/19 Calcium Carbonate [Calcium] 1,200 mg PO DAILY 11/24/17 05/30/19 Cholecalciferol [Vitamin D3] 1,000 unit PO DAILY 11/24/17 05/30/19 Liothyronine Sodium [Cytomel] 5 mcg PO QAM 11/24/17 05/30/19 traZODone HCL 50 mg PO HS 11/24/17 05/30/19 Choline Bitartrate [Choline Sr] 250 mg PO DAILY 05/29/19 05/30/19 Cyanocobalamin (Vitamin B-12) 1,000 mcg PO DAILY 05/29/19 05/30/19 [Vitamin B-12] Ibuprofen [Motrin] 200 mg PO Q6HR PRN 05/29/19 05/30/19 Magnesium 500 mg PO DAILY 05/29/19 05/30/19 Turmeric Root Extract [Turmeric] 800 mg PO DAILY 05/29/19 05/30/19 Allergies Allergy/AdvReac Type Severity Reaction Status Date / Time No Known Allergies Allergy Verified 02/24/21 16:16 Review of Systems ROS Statement: Those systems with pertinent positive or pertinent negative responses have been documented in the HPI. ROS Other: All systems not noted in ROS Statement are negative. EKG Findings - EKG Comments: EKG Findings:: Normal sinus rhythm, septal infarct, age undetermined, no signs of acute ST segment elevation. Ventricular rate 61, [place] interval 144, QT 424. Similar to previous on 11/24/2017. Past Medical History Past Medical History: Hyperlipidemia, Memory Impairment, Rheumatoid Arthritis (RA), Thyroid Disorder Additional Past Medical History / Comment(s): freq diarrhea, HX OF POLYPS. Right eye anyersum, hypothyroidism History of Any Multi-Drug Resistant Organisms: None Reported Past Surgical History: Hysterectomy Past Anesthesia/Blood Transfusion Reactions: No Reported Reaction Past Psychological History: Anxiety Smoking Status: Never smoker Past Alcohol Use History: None Reported Past Drug Use History: None Reported - Past Family History Mother Family Medical History: Cancer Additional Family Medical History / Comment(s): breast Father Family Medical History: Cancer General Exam - General Exam Comments Initial Comments: GENERAL: Patient is well-developed and well-nourished. Patient is nontoxic and in no acute distress. HEAD: Atraumatic, normocephalic. EYES: Pupils equal round and reactive to light, extraocular movements intact, sclera anicteric, conjunctiva are normal. Eyelids were unremarkable. ENT: Nares patent, oropharynx clear without exudates. Moist mucous membranes. NECK: Normal range of motion, supple without lymphadenopathy or JVD. LUNGS: Unlabored respirations. Breath sounds clear to auscultation bilaterally and equal. No wheezes rales or rhonchi. HEART: Regular rate and rhythm without murmurs, rubs or gallops. ABDOMEN: Soft, nontender, normoactive bowel sounds. No guarding, no rebound. No masses appreciated. MUSCULOSKELETAL: Normal extremities with adequate strength and normal range of motion, no pitting or edema. No clubbing or cyanosis. NEUROLOGICAL: Patient is alert and oriented x 3. Motor and sensory are also intact. Cranial nerves II through XII grossly intact. Symmetrical smile. Normal speech, normal gait. PSYCH: Normal mood, normal affect. SKIN: Warm, Dry, normal turgor, no rashes or lesions noted. Limitations: no limitations Course Vital Signs 02/24/21 16:17 Temperature 97.7 F Pulse Rate 68 Respiratory 20 Rate Blood Pressure 131/74 O2 Sat by Pulse 97 Oximetry Chest Pain MDM - [facility] Patient is a 70-year-old female with history of hyperlipidemia, thyroid disease, presenting after having chest pain earlier today. About 3 hours prior to arrival, she had a 15-20 sec episode of his chest pain with radiation into the left arm. Denies any chest pain at this time. EKG shows normal sinus rhythm, no signs of acute ischemic event. Her vital signs are stable. Labs are unremarkable, troponin is normal. Chest x-ray show no acute events. Patient is resting comfortably. Patient will be admitted for observation, cardiac consult, serial troponins. Dr. Santana is accepting. Patient is agreeable to this plan of care. Case discussed with Dr. Bella. Disposition Clinical Impression: Chest pain Disposition: ADMITTED IP TO THIS HOSP Condition: Stable Referrals: Alin Santana MD [Primary Care Provider] - 1-2 days Decision Date: 02/24/21 Decision Time: 18:49
[2021-02-24 18:01] LABS: Basophils % (A) 0 %; Eosinophils # (A) 0.1 k/uL (0-0.7); Eosinophils % (A) 2 %; HGB 13.8 gm/dL (11.4-16.0); Lymphocytes # (A) 1.9 k/uL (1.0-4.8); Lymphocytes % (A) 34 %; MCH 30.6 pg (25.0-35.0); MCHC 32.9 g/dL (31.0-37.0); Mean Platelet Volume 7.1; Monocytes # (A) 0.3 k/uL (0-1.0); Monocytes % (A) 5 %; Neutrophils # (A) 3.3 k/uL (1.3-7.7); Neutrophils % (A) 57 %; Platelet Count 288 k/uL (150-450); RBC 4.52 m/uL (3.80-5.40); RDW 12.9 % (11.5-15.5); WBC 5.7 k/uL (3.8-10.6)
[2021-02-24 18:15] LABS: Prothrombin Time 10.8 sec (9.0-12.0)
[2021-02-24 18:21] LABS: ALT 18 U/L (4-34); AST 27 U/L (14-36); African American GFR (CKD) >90 (>60 ml/min/1.73 sqM); Albumin 4.6 g/dL (3.5-5.0); Alkaline Phosphatase 84 U/L (38-126); Anion Gap 9 mmol/L; Blood Urea Nitrogen 16 mg/dL (7-17); Calcium 9.6 mg/dL (8.4-10.2); Carbon Dioxide 28 mmol/L (22-30); Chloride 105 mmol/L (98-107); Glucose 95 mg/dL (74-99); Magnesium 2.2 mg/dL (1.6-2.3); Non-African American GFR(CKD) >90 (>60 ml/min/1.73 sqM); Sodium 142 mmol/L (137-145); Total Bilirubin 0.4 mg/dL (0.2-1.3); Total Protein 7.5 g/dL (6.3-8.2)
[2021-02-24] MEDS ORDERED: NITROGLYCERIN SL TABS 0.4 MG TAB SUBLINGUAL PRN (18:46)
--- NOTE | 2021-02-24 19:20 | XR ---
EXAMINATION TYPE: XR chest 2V DATE OF EXAM: 02/24/2021 COMPARISON: 10/14/2019 HISTORY: 70 years Female. STUDY INDICATION GIVEN: Chest Pain . TECHNIQUE: Frontal and lateral chest radiographs IMPRESSION: Hyperinflation of the lungs and upper lobe increased lucency suggesting COPD/emphysema. No focal airspace opacities, pneumothorax or pleural effusion. The cardiomediastinal silhouette is within normal limits. There is asymmetric apparent narrowing of the right upper trachea. Recommend correlation with neck CT . No acute osseous abnormalities seen.
[2021-02-24] MEDS ORDERED: ZOLPIDEM 5 MG TAB PO PRN (21:29)
[2021-02-24] MEDS ORDERED: traZODone HCL 50 MG TAB PO SCH (21:30)
[2021-02-25 02:59] VITALS: RESP 18
[2021-02-25] MEDS ORDERED: LEVOTHYROXINE 50 MCG TAB PO SCH (06:30)
[2021-02-25] MEDS ORDERED: VALERIAN ROOT 100 MG PO PRN (08:07)
--- NOTE | 2021-02-25 08:07 | P.HPIM ---
History of Present Illness H&P Date: 02/25/21 Chief Complaint: Significant chest pain. This is a history of physical 70-year-old white female with no previous history of angina who states for the last several days she's been having dizziness with chest pressure. The patient states radiation the left arm but no significant diaphoresis. Some nausea associated with dizziness but no chest pain. She states the pain was becoming more frequent and intense and she was appropriately admitted for anginal equivalent. No smoke exposure no secondhand issues as far smoke as stated. No other voiding difficulties. Appetite has been nominal. No syncope. Review of Systems Constitutional: Denies chills, Denies fever Eyes: denies blurred vision, denies pain Ears, nose, mouth and throat: Denies headache, Denies sore throat Cardiovascular: Reports chest pain, Reports lightheadedness, Denies edema, Denies leg edema, Denies palpitations, Denies syncope Respiratory: Denies cough Gastrointestinal: Denies abdominal pain, Denies diarrhea, Denies nausea, Denies vomiting Genitourinary: Denies dysuria, Denies hematuria Musculoskeletal: Denies myalgias Past Medical History Past Medical History: Hyperlipidemia, Memory Impairment, Rheumatoid Arthritis (RA), Thyroid Disorder Additional Past Medical History / Comment(s): freq diarrhea, HX OF POLYPS. Right eye anyersum, hypothyroidism History of Any Multi-Drug Resistant Organisms: None Reported Past Surgical History: Hysterectomy Past Anesthesia/Blood Transfusion Reactions: No Reported Reaction Past Psychological History: Anxiety Smoking Status: Never smoker Past Alcohol Use History: None Reported Past Drug Use History: None Reported - Past Family History Mother Family Medical History: Cancer Additional Family Medical History / Comment(s): breast Father Family Medical History: Cancer Medications and Allergies Home Medications Medication Instructions Recorded Confirmed Type Levothyroxine Sodium [Synthroid] 50 mcg PO DAILY 07/02/17 02/24/21 History RX: Garlic 500 mg PO DAILY 07/02/17 02/24/21 History Calcium Carbonate [Calcium] 1,200 mg PO DAILY 11/24/17 02/24/21 History Liothyronine Sodium [Cytomel] 5 mcg PO DAILY 11/24/17 02/24/21 History RX: traZODone HCL 50 mg PO HS 11/24/17 02/24/21 History Cyanocobalamin (Vitamin B-12) 1,000 mcg PO DAILY 05/29/19 02/24/21 History [Vitamin B-12] Multivitamins, Thera [Multivitamin 1 tab PO DAILY 02/24/21 02/24/21 History (formulary)] Propylene Glycol/Peg 400 [Systane 1 drop BOTH EYES BID 02/24/21 02/24/21 History Ultra 0.4-0.3% Eye Drp] RX: Lutein 40 mg PO DAILY 02/24/21 02/24/21 History RX: Meloxicam 15 mg PO DAILY PRN 02/24/21 02/24/21 History RX: Valerian Root 100 mg PO HS PRN 02/24/21 02/24/21 History Allergies Allergy/AdvReac Type Severity Reaction Status Date / Time No Known Allergies Allergy Verified 02/24/21 19:08 Physical Exam Vitals: Vital Signs Temp Pulse Pulse Resp BP BP BP 02/25/21 07:00 97.5 F L 64 18 118/75 02/25/21 02:00 97.8 F 57 L 18 116/74 02/24/21 21:21 16 02/24/21 20:53 97.9 F 62 16 121/69 02/24/21 20:14 62 15 110/63 02/24/21 16:17 97.7 F 68 20 131/74 Pulse Ox 02/25/21 07:00 98 02/25/21 02:00 96 02/24/21 21:21 02/24/21 20:53 96 02/24/21 20:14 100 02/24/21 16:17 97 Intake and Output 02/24/21 02/25/21 02/25/21 22:59 06:59 14:59 Other: # Voids 1 1 Weight 60.328 kg - Constitutional General appearance: average body habitus, cooperative, no no acute distress - EENT Eyes: EOMI - Neck Neck: no lymphadenopathy - Respiratory Respiratory: bilateral: CTA - Cardiovascular Rhythm: regular Heart sounds: normal: S1, S2 Abnormal Heart Sounds: no S3 Gallop - Gastrointestinal General gastrointestinal: soft, no tenderness - Integumentary Integumentary: no cellulitis - Psychiatric Psychiatric: A&O x's 3 Results CBC & Chem 7: 02/24/21 17:38 02/24/21 17:38 Assessment and Plan (1) Chest pain Current Visit: Yes Status: Acute Code(s): R07.9 - CHEST PAIN, UNSPECIFIED SNOMED Code(s): 01009792 Plan: Rule out myocardial infarction. Enzymatic elevation is not noted. Reconcile medications. Consult cardiology for probable stress testing. Anticipate discharge in next 24 hours.
[2021-02-25] MEDS ORDERED: ARTIFICIAL TEARS-HYPROMELLOSE DROPS 15 ML BTL BOTH EYES SCH (09:00)
[2021-02-25] MEDS ORDERED: ASPIRIN 81 MG PO SCH (09:00)
[2021-02-25] MEDS ORDERED: NON FORMULARY DRUG (Lutein [Lutein] 20 MG Capsule) PO SCH (09:00)
[2021-02-25] MEDS ORDERED: ASPIRIN 325 MG TAB PO SCH (09:00)
[2021-02-25] MEDS ORDERED: CYANOCOBALAMIN 500 MCG TAB PO SCH (09:00)
[2021-02-25] MEDS ORDERED: CALCIUM CARB-VIT D 500 MG-5 MCG TAB PO SCH (09:00)
[2021-02-25] MEDS ORDERED: NON FORMULARY DRUG (Garlic [Garlic] 1 EACH Tablet) PO SCH (09:00)
[2021-02-25] MEDS ORDERED: MULTIVITAMINS, THERA 1 EACH TAB PO SCH (09:00)
--- NOTE | 2021-02-25 09:23 | P.CRDCN ---
History of Present Illness History of present illness: HISTORY OF PRESENTING ILLNESS This is a pleasant 70-year-old female past medical history significant for hypothyroidism and arthritis. 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 We have been asked to see in consultation for chest pain. Patient states yesterday she was walking in the mall with her . She had an acute onset of left-sided chest pain with radiation to her left arm. She states her left arm felt numb. Her chest pain relieved with rest. She states she had associated nausea and also some dizziness with walking. She states her pain recurred and was more intense and frequent she decided to present to the emergency department. She denies any associated diaphoresis, vomiting, shortness of breath, lightheadedness, dizziness, syncope or presyncope. She denies any symptoms of orthopnea or PND. She denies any history of SC, coronary artery disease, stroke, hypertension, diabetes. She denies any family history of coronary artery disease. She denies any smoking history, however had a long exposure to secondhand smoke. Denies any alcohol or illicit drug use. DIAGNOSTICS EKG reveals sinus rhythm, heart rate 61, no significant ST ST-T wave abnormalities. Prior EKG in 2018 with similar findings. Telemetry tracings indicate sinus rhythm, heart rate 5560s, no arrhythmia or pauses noted. Echocardiogram in 09/2020 revealed EF 5560%, now significant wall motion abnormalities. Chest xray Hyperinflation, no acute cardiopulmonary process. Laboratory reviewed, CBC unremarkable, troponin negative 3, proBNP 138, COVID- 19 PCR negative, sodium 142, potassium 4.0, BUN 16, serum creatinine 0.6, magnesium 2.2. Current home medications include meloxicam, trazodone, multivitamin, Synthroid, Cardura, vitamin B12, calcium, liothyronine REVIEW OF SYSTEMS At the time of my exam: CONSTITUTIONAL: Denies fever or chills. CARDIOVASCULAR: Positive chest pain denies shortness of breath, orthopnea, PND or palpitations. RESPIRATORY: Denies cough. GASTROINTESTINAL: Positive nausea Denies abdominal pain, diarrhea, constipation vomiting. MUSCULOSKELETAL: Denies myalgias. NEUROLOGIC: Denies numbness, tingling, headache or weakness. ENDOCRINE: Denies fatigue, weight change, polydipsia or polyurina. GENITOURINARY: Denies burning, hematuria or urgency with micturation. HEMATOLOGIC: Denies history of anemia or bleeding. PHYSICAL EXAMINATION Blood pressure 118/75, heart 64, afebrile maintaining oxygen saturations on room air CONSTITUTIONAL: No apparent distress. HEENT: Head is normocephalic. Pupils are equal, round. Sclerae anicteric. Mucous membranes of the mouth are moist. No JVD. No carotid bruit. CHEST EXAMINATION: Lungs are clear to auscultation. No chest wall tenderness is noted on palpation or with deep breathing. HEART EXAMINATION: Regular rate and rhythm. S1, S2 heard. No murmurs, gallops or rub. ABDOMEN: Soft, nontender. Positive bowel sounds. EXTREMITIES: 2+ peripheral pulses, no lower extremity edema and no calf tenderness. SKIN: warm, dry NEUROLOGIC EXAMINATION: Patient is awake, alert and oriented x3. ASSESSMENT Chest pain, atypical, acute coronary syndrome has been ruled out Hypothyroidism Arthritis PLAN An acute coronary event has been ruled out with no EKG evidence of ischemia and negative cardiac enzymes. Obtain 2D echocardiogram and doppler study to assess cardiac structure and function. Perform stress echo test to assess for stress induced cardiac ischemia. If abnormal will consider coronary angiography. Lipid Panel From cardiology perspective, if patient stress test is negative okay to discharge from cardiology perspective. Thank you kindly for this consultation. Nurse Practitioner note has been reviewed, I agree with a documented findings and plan of care. Patient was seen and examined. Past Medical History Past Medical History: Hyperlipidemia, Memory Impairment, Rheumatoid Arthritis (RA), Thyroid Disorder Additional Past Medical History / Comment(s): freq diarrhea, HX OF POLYPS. Right eye anyersum, hypothyroidism History of Any Multi-Drug Resistant Organisms: None Reported Past Surgical History: Hysterectomy Past Anesthesia/Blood Transfusion Reactions: No Reported Reaction Past Psychological History: Anxiety Smoking Status: Never smoker Past Alcohol Use History: None Reported Past Drug Use History: None Reported - Past Family History Mother Family Medical History: Cancer Additional Family Medical History / Comment(s): breast Father Family Medical History: Cancer Medications and Allergies Home Medications Medication Instructions Recorded Confirmed Type Garlic 500 mg PO DAILY 07/02/17 02/24/21 History Levothyroxine Sodium [Synthroid] 50 mcg PO DAILY 07/02/17 02/24/21 History Calcium Carbonate [Calcium] 1,200 mg PO DAILY 11/24/17 02/24/21 History Liothyronine Sodium [Cytomel] 5 mcg PO DAILY 11/24/17 02/24/21 History traZODone HCL 50 mg PO HS 11/24/17 02/24/21 History Cyanocobalamin (Vitamin B-12) 1,000 mcg PO DAILY 05/29/19 02/24/21 History [Vitamin B-12] Lutein 40 mg PO DAILY 02/24/21 02/24/21 History Meloxicam 15 mg PO DAILY PRN 02/24/21 02/24/21 History Multivitamins, Thera [Multivitamin 1 tab PO DAILY 02/24/21 02/24/21 History (formulary)] Propylene Glycol/Peg 400 [Systane 1 drop BOTH EYES BID 02/24/21 02/24/21 History Ultra 0.4-0.3% Eye Drp] Valerian Root 100 mg PO HS PRN 02/24/21 02/24/21 History Allergies Allergy/AdvReac Type Severity Reaction Status Date / Time No Known Allergies Allergy Verified 02/24/21 19:08 Physical Exam Vitals: Vital Signs Temp Pulse Pulse Resp BP BP Pulse Ox 02/25/21 02:00 97.8 F 57 L 18 116/74 96 02/24/21 21:21 16 02/24/21 20:53 97.9 F 62 16 121/69 96 02/24/21 20:14 62 15 110/63 100 02/24/21 16:17 97.7 F 68 20 131/74 97 Intake and Output 02/24/21 02/25/21 02/25/21 22:59 06:59 14:59 Other: # Voids 1 1 Weight 60.328 kg Results 02/24/21 17:38 02/24/21 17:38 Cardiac Enzymes 02/24/21 02/24/21 02/24/21 Range/Units 17:38 17:38 21:16 AST 27 (14-36) U/L Troponin I <0.012 <0.012 (0.000-0.034) ng/mL 02/24/21 Range/Units 23:31 AST (14-36) U/L Troponin I <0.012 (0.000-0.034) ng/mL Coagulation 02/24/21 Range/Units 17:38 PT 10.8 (9.0-12.0) sec APTT 24.0 (22.0-30.0) sec CBC 02/24/21 Range/Units 17:38 WBC 5.7 (3.8-10.6) k/uL RBC 4.52 (3.80-5.40) m/uL Hgb 13.8 (11.4-16.0) gm/dL Hct 42.0 (34.0-46.0) % Plt Count 288 (150-450) k/uL Comprehensive Metabolic Panel 02/24/21 Range/Units 17:38 Sodium 142 (137-145) mmol/L Potassium 4.0 (3.5-5.1) mmol/L Chloride 105 (98-107) mmol/L Carbon Dioxide 28 (22-30) mmol/L BUN 16 (7-17) mg/dL Creatinine 0.61 (0.52-1.04) mg/dL Glucose 95 (74-99) mg/dL Calcium 9.6 (8.4-10.2) mg/dL AST 27 (14-36) U/L ALT 18 (4-34) U/L Alkaline Phosphatase 84 (38-126) U/L Total Protein 7.5 (6.3-8.2) g/dL Albumin 4.6 (3.5-5.0) g/dL Current Medications Generic Name Dose Route Start Last Admin Trade Name Freq PRN Reason Stop Dose Admin Aspirin 81 mg 02/25/21 09:00 Aspirin 325 Mg Tab PO DAILY YAZMIN Levothyroxine Sodium 50 mcg 02/25/21 06:30 02/25/21 06:12 Levothyroxine 50 Mcg Tab PO 50 mcg DAILY@0630 YAZMIN Administration Nitroglycerin 0.4 mg 02/24/21 18:46 Nitroglycerin Sl Tabs 0.4 Mg Tab SUBLINGUAL Q5M PRN Chest Pain Trazodone HCl 50 mg 02/24/21 21:30 02/24/21 21:50 Trazodone Hcl 50 Mg Tab PO 50 mg HS YAZMIN Administration Zolpidem Tartrate 5 mg 02/24/21 21:29 02/25/21 01:23 Zolpidem 5 Mg Tab PO 5 mg HS PRN Administration Insomnia Intake and Output 02/24/21 02/25/21 02/25/21 22:59 06:59 14:59 Other: # Voids 1 1 Weight 60.328 kg 02/24/21 17:38 02/24/21 17:38
--- NOTE | 2021-02-25 11:38 | ECHOF ---
Referral Reason:chest pain MEASUREMENTS -------- HEIGHT: 165.1 cm WEIGHT: 60.3 kg BP: RVIDd: 2.2 cm (< 3.3) IVSd: 0.9 cm (0.6 - 1.1) LVIDd: 4.1 cm (3.9 - 5.3) LVPWd: 1.1 cm (0.6 - 1.1) IVSs: 1.1 cm LVIDs: 2.9 cm LVPWs: 1.5 cm LA Diam: 3.4 cm (2.7 - 3.8) Ao Diam: 3.1 cm (2.0 - 3.7) AV Cusp: 2.0 cm (1.5 - 2.6) MV EXCURSION: 19.740 mm (> 18.000) MV EF SLOPE: 112 mm/s (70 - 150) EPSS: 0.2 cm MV E Anuj: 0.66 m/s MV DecT: 137 ms MV A Anuj: 0.50 m/s MV E/A Ratio: 1.34 RAP: 5.00 mmHg RVSP: 23.88 mmHg FINDINGS -------- Sinus rhythm. This was a technically good study. LV size, wall thickness and systolic function are normal, with an EF greater than 55%. The left tima tricular size is normal. The right ventricle is normal in size. The left atrial size is normal. The right atrial size is normal. The aortic valve is trileaflet, and appears structurally normal. No aortic stenosis or regurgitation. Mild mitral regurgitation is present. Mild tricuspid regurgitation present. Right ventricular systolic pressure is normal at < 35 mmHg. There is no pulmonic regurgitation present. There is no pericardial effusion. CONCLUSIONS -------- 1. LV size, wall thickness and systolic function are normal, with an EF greater than 55%. 2. The left ventricular size is normal. 3. The right ventricle is normal in size. 4. The left atrial size is normal. 5. The right atrial size is normal. 6. The aortic valve is trileaflet, and appears structurally normal. No aortic stenosis or regurgitati on. 7. Mild mitral regurgitation is present. 8. Mild tricuspid regurgitation present. 9. There is no pericardial effusion. COMPUTING TUTOR: Bailey Townsend RDCS
--- NOTE | 2021-02-25 13:42 | ECHOS ---
STRESS ECHOCARDIOGRAM INDICATIONS: Chest pain. BASELINE HEART RATE: 63 BASELINE BLOOD PRESSURE: 117/58 MAXIMUM HEART RATE: 154 MAXIMUM BLOOD PRESSURE: 172/80 85% MPHR: 128 100% MPHR: 151 METS: 7.3 MAXIMUM STAGE REACHED: 3 TOTAL EXERCISE TIME: 7 min. CLINICAL INFORMATION: STRESS DATA: Heart rate is 63, pressure 117/58 mmHg. Baseline EKG showed sinus mechanism. The patient exercised on the treadmill according to Juan protocol for a total of 7 minutes and achieved 7.3 METS. Max heart rate was 154, which is about 102% of maximum predicted heart rate. Maximum blood pressure was 172/80 mmHg. Clinically the patient did not have any symptoms. The EKG showed about 0.[address]- segment depression on recovery. ECHOCARDIOGRAM IMAGES: Echocardiogram images from parasternal long axis view, parasternal short axis view, apical 4-chamber and apical 2-chamber views were obtained as the baseline images at the peak of the heart rate as well as on recovery. The echocardiogram images showed overall good augmentation in the left ventricular systolic function without any evidence of wall motion abnormalities concerning for ischemia. CONCLUSION: 1. Good exercise tolerance. 2. Mild EKG changes in response to exercise. 3. Normal echocardiogram in response to exercise. 4. Essentially normal stress test for the patient. MMODL / IJN: [id number] /
[2021-02-25] MEDS ORDERED: ACETAMINOPHEN TAB 325 MG TAB PO PRN (15:28)
[2021-02-25 15:39] LABS: Chol/HDL Ratio 4.45 Ratio; HDL Cholesterol 46.3 mg/dL (40.00-60.00); LDL Cholesterol,Calculated 144.2 mg/dL (0.0-131.0); Triglycerides 77.5 mg/dL (0.00-149.00); VLDL Calculation 15.5 mg/dL (5.00-40.00)
[2021-02-25 16:55] VITALS: BP 102/66; PULSE 67; TEMP 97.7
== END 2021-02-25 18:45 | disposition home or self-care (01) ==
LOC: EC 15:52 → 6NMEDSUR 18:46
PROVIDERS: ADMIT Family Medicine; ATTEND Family Medicine
DX: R07.89 Other chest pain (principal); R20.0 Anesthesia of skin; R41.3 Other amnesia; R11.0 Nausea; R42 Dizziness and giddiness; M06.9 Rheumatoid arthritis, unspecified; R19.7 Diarrhea, unspecified; E03.9 Hypothyroidism, unspecified; E78.5 Hyperlipidemia, unspecified; I08.1 Rheumatic disorders of both mitral and tricuspid valves; M19.90 Unspecified osteoarthritis, unspecified site; F41.9 Anxiety disorder, unspecified; Z20.822 Contact with and (suspected) exposure to COVID-19; Z79.890 Hormone replacement therapy; Z79.899 Other long term (current) drug therapy; Z87.19 Personal history of other diseases of the digestive system; Z90.710 Acquired absence of both cervix and uterus; Z77.22 Contact with and (suspected) exposure to environmental tobacco smoke (acute) (chronic); Z80.3 Family history of malignant neoplasm of breast
CPT/HCPCS: 99285; 36415; 93005; 93306; 93351; 83880; 80061; 80053; 83735; 84484; 85025; 85610; 85730; 87635; 71046; G0378 ×2

== ENCOUNTER → 2021-04-02 | Outpatient (CLI) | payer MEDICARE ==
--- NOTE | 2021-04-05 14:01 | MM ---
Reason for exam: screening (asymptomatic). Last mammogram was performed 1 year ago. History: Patient is postmenopausal. Family history of breast cancer in mother. Physical Findings: A clinical breast exam by your physician is recommended on an annual basis and results should be correlated with mammographic findings. MG 3D Screening Mammo W/Cad Bilateral CC and MLO view(s) were taken. Prior study comparison: March 31, 2020, bilateral MG 3d screening mammo w/cad. August 24, 2018, bilateral MG 3d screening mammo w/cad. The breast tissue is heterogeneously dense. This may lower the sensitivity of mammography. No significant changes when compared with prior studies. ASSESSMENT: Benign, BI-RAD 2 RECOMMENDATION: Routine screening mammogram of both breasts in 1 year.
== END | disposition home or self-care (01) ==
LOC: RADMAMWWP 10:59
PROVIDERS: ATTEND Family Medicine
DX: Z12.31 Encounter for screening mammogram for malignant neoplasm of breast (principal); Z78.0 Asymptomatic menopausal state; Z80.3 Family history of malignant neoplasm of breast
CPT/HCPCS: 77063; 77067

== ENCOUNTER → 2021-11-25 | Outpatient (CLI) | payer MEDICARE | END | disposition home or self-care (01) | LOC: LABWHC1 08:07 | PROVIDERS: ATTEND Ophthalmology | DX: G43.809 Other migraine, not intractable, without status migrainosus (principal) | CPT/HCPCS: 36415; 85652; 86140 ==

== ENCOUNTER → 2022-04-04 | Outpatient (CLI) | payer MEDICARE ==
--- NOTE | 2022-04-05 08:27 | MM ---
Reason for Exam: Screening (asymptomatic). Last screening mammogram was performed 12 month(s) ago. Patient History: Menarche at age 12. First Full-Term at age 27. Left ovary removed at age 46. Right ovary removed at age 46. Hysterectomy at age 46. Postmenopausal. Mother had breast cancer. Risk Values: Delilah 5 year model risk: 3.8%. NCI Lifetime model risk: 10.2%. Prior Study Comparison: 08/24/2018 Bilateral Screening Mammogram, [facility]. 03/31/2020 Bilateral Screening Mammogram, [facility]. 04/02/2021 Bilateral Screening Mammogram, [facility]. Tissue Density: The breast tissue is heterogeneously dense. This may lower the sensitivity of mammography. Findings: Analyzed By CAD. There is no suspicious group of microcalcifications or new suspicious mass in either breast. Overall Assessment: Negative, BI-RAD 1 Management: Screening Mammogram of both breasts in 1 year. A clinical breast exam by your physician is recommended on an annual basis and results should be correlated with mammographic findings. Electronically signed and approved by: Nathaniel Ortiz M.D. Radiologis
== END | disposition home or self-care (01) ==
LOC: RADMAMWWP 07:31
PROVIDERS: ATTEND Family Medicine
DX: Z12.31 Encounter for screening mammogram for malignant neoplasm of breast (principal); Z78.0 Asymptomatic menopausal state; Z80.3 Family history of malignant neoplasm of breast
CPT/HCPCS: 77063; 77067

== ENCOUNTER → 2023-04-05 | Outpatient (CLI) | payer MEDICARE ==
--- NOTE | 2023-04-06 09:16 | MM ---
Reason for Exam: Screening (asymptomatic). Last screening mammogram was performed 12 month(s) ago. Patient History: Menarche at age 12. First Full-Term at age 27. Left ovary removed at age 46. Right ovary removed at age 46. Hysterectomy at age 46. Postmenopausal. Mother had breast cancer. Risk Values: Delilah 5 year model risk: 3.8%. NCI Lifetime model risk: 9.7%. Prior Study Comparison: 03/31/2020 Bilateral Screening Mammogram, [facility]. 04/02/2021 Bilateral Screening Mammogram, [facility]. 04/04/2022 Bilateral MG 3D screening mammo w/cad, [facility]. Tissue Density: The breast tissue is extremely dense which could obscure a lesion on mammography. Findings: Analyzed By CAD. There is no suspicious group of microcalcifications or new suspicious mass. Overall Assessment: Negative, BI-RAD 1 Management: Screening Mammogram of both breasts in [address] [facility] will attempt to contact patient to return for supplemental views and ultrasound if indicated. Patient should continue monthly self-breast exams. A clinical breast exam by your physician is recommended on an annual basis. This exam should not preclude additional follow-up of suspicious palpable abnormalities. Note on Delilah scores and lifetime risk: 1. A Delilah score greater than 3% is considered moderate risk. If this is the case, consider specialist referral to assess eligibility for a risk reducing agent. 2. If overall lifetime risk for the development of breast cancer is 20% or higher, the patient may qualify for future screening with alternating mammogram and breast MRI. Electronically signed and approved by: Albert Mahan DO
== END | disposition home or self-care (01) ==
LOC: RADMAMWWP 06:59
PROVIDERS: ATTEND Family Medicine
DX: Z12.31 Encounter for screening mammogram for malignant neoplasm of breast (principal); Z80.3 Family history of malignant neoplasm of breast; Z78.0 Asymptomatic menopausal state
CPT/HCPCS: 77063; 77067

== ENCOUNTER → 2024-04-09 | Outpatient (CLI) | payer MEDICARE ==
--- NOTE | 2024-04-09 08:41 | MM ---
Reason for Exam: Screening (asymptomatic). Last screening mammogram was performed 12 month(s) ago. Patient History: Menarche at age 12. First Full-Term at age 27. Left ovary removed at age 46. Right ovary removed at age 46. Hysterectomy at age 46. Postmenopausal. Mother had breast cancer. Risk Values: Delilah 5 year model risk: 3.8%. NCI Lifetime model risk: 9.2%. Prior Study Comparison: 04/02/2021 Bilateral Screening Mammogram, [facility]. 04/04/2022 Bilateral MG 3D screening mammo w/cad, [facility]. 04/05/2023 Bilateral MG 3D screening mammo w/cad, [facility]. Tissue Density: The breasts are heterogeneously dense, which may obscure small masses. Findings: Analyzed By CAD. Right breast: There is no suspicious group of microcalcifications or new suspicious mass. Left breast: There is no suspicious group of microcalcifications or new suspicious mass. Overall Assessment: Negative, BI-RAD 1 Management: Screening Mammogram of both breasts in [address] [facility] will attempt to contact patient to return for supplemental views and ultrasound if indicated. Patient should continue monthly self-breast exams. A clinical breast exam by your physician is recommended on an annual basis. This exam should not preclude additional follow-up of suspicious palpable abnormalities. Note on Delilah scores and lifetime risk: 1. A Delilah score greater than 3% is considered moderate risk. If this is the case, consider specialist referral to assess eligibility for a risk reducing agent. 2. If overall lifetime risk for the development of breast cancer is 20% or higher, the patient may qualify for future screening with alternating mammogram and breast MRI. [facility], , 04/09/2024 8:38 AM. Electronically signed and approved by: Albert Mahan DO
== END | disposition home or self-care (01) ==
LOC: RADMAMWWP 07:19
PROVIDERS: ATTEND Family Medicine
DX: Z12.31 Encounter for screening mammogram for malignant neoplasm of breast (principal); Z78.0 Asymptomatic menopausal state; Z80.3 Family history of malignant neoplasm of breast; Z90.722 Acquired absence of ovaries, bilateral; R92.333 Mammographic heterogeneous density, bilateral breasts
CPT/HCPCS: 77063; 77067

== ENCOUNTER → 2024-08-28 | Outpatient (CLI) | payer MEDICARE ==
--- NOTE | 2024-08-28 09:27 | BD ---
EXAMINATION TYPE: Axial Bone Density DATE OF EXAM: 08/28/2024 CLINICAL HISTORY: 74 years old Female. ICD-10 CODE: Z86.39 PERSONAL HISTORY OF ENDO, NUTRITIONAL AND M , Additional History: Height: 64 Weight: 134 FRAX RISK QUESTIONS: 3. Menopause before 45: >45 RISK FACTORS HISTORY OF: osteoarthritis, aneurysm, sugar allergy, nutritional disorder MEDICATIONS: vit d, calcium and multivitamin, Thyroid Medications: yes, 2 types, 10+ yrs EXAM MEASUREMENTS: Bone mineral densitometry was performed using the [employer] System. Bone mineral density as measured about the Lumbar spine is: ----- L1-L4(G/cm2): 1.007 T Score Values are as follows: ----- L1: -1.8 ----- L2: -1.8 ----- L3: -1.4 ----- L4: -1.0 ----- L1-L4: -1.4 Z Score Values are as follows: ----- L1: 0.0 ----- L2: 0.1 ----- L3: 0.5 ----- L4: 0.9 ----- L1-L4: 0.4 Bone mineral density is her first dexxa study at [facility]. Bone mineral density about the R hip (g/cm2): 0.886 Bone mineral density about the L hip (g/cm2): 0.881 T Score values are as follows: -----R Neck: -2.3 -----L Neck: -1.7 -----R Total: -1.1 -----L Total: -1.0 Z Score values are as follows: -----R Neck: -0.3 -----L Neck: 0.2 -----R Total: 0.6 -----L Total: 0.7 Bone mineral density is her first bone density study at [facility]. FRAX%s: The graph provided illustrates a 13.9% chance for a major osteoporotic fx and a 3.8% chance f or the hips probability for fx in 10 years time. IMPRESSION: Osteopenia (T Score between -2.5 and -1). There is slightly increased risk of fracture and the patient may be considered for treatment. Re-Screen 2-5 years. NOTE: T-SCORE=SD OF THE YOUNG ADULT MEAN. [facility], , 08/28/2024 9:25 AM
== END | disposition home or self-care (01) ==
LOC: RADBDWWP 07:12
PROVIDERS: ATTEND Family Medicine
DX: M85.89 Other specified disorders of bone density and structure, multiple sites (principal); Z78.0 Asymptomatic menopausal state; Z86.39 Personal history of other endocrine, nutritional and metabolic disease; R60.0 Localized edema
CPT/HCPCS: 77080